=== PATIENT | female | born 2000 | race Caucasian/White ===

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

== ENCOUNTER → 2020-02-06 | Outpatient (CLI) | payer OTHER ==
[~2020-02-06] MED LIST changes: +TAMIFLU 75MG CA75 MG PO
== END | disposition home or self-care (01) ==
LOC: COVID19 11:47
PROVIDERS: ATTEND Family Medicine
DX: Z20.828 Contact with and (suspected) exposure to other viral communicable diseases (principal)

== ENCOUNTER 2022-01-02 14:31 | Emergency (ER) | payer OTHER ==
[~2022-01-02] VITALS: Ht 172.7 cm; Wt 154.2 kg
[2022-01-02 14:50] VITALS: BP 132/58
[2022-01-02 15:24] LABS: BASO # 0.1 10*3/uL (0.0-0.1); BASO % 1.2 % (0.0-1.0); EOS # 0.2 10*3/uL (0.0-0.4); EOS % 1.8 % (1.0-4.0); HEMATOCRIT 38.3 % (37.0-47.0); LYMPH % 29.4 % (27.0-41.0); MEAN CELL VOLUME 84.5 fl (81.0-99.0); MEAN CORPUSCULAR HGB 27.4 pg (27.0-31.0); MEAN CORPUSCULAR HGB CONC 32.4 g/dl (33.0-37.0); MEAN PLATELET VOLUME 11.7 fl (9.6-12.3); MONO # 0.7 10*3/uL (0.1-1.0); MONO % 7.2 % (3.0-9.0); NEUT # 6.2 10*3/uL (2.3-7.9); NEUT % 60.1 % (47.0-73.0); PLATELET COUNT AUTOMATED 299 10*3/uL (130-400); RED BLOOD COUNT 4.53 10*6/uL (4.10-5.10); WHITE BLOOD COUNT 10.3 10*3/uL (4.8-10.8)
[2022-01-02 15:35] LABS: BILIRUBIN Negative (Negative); BLOOD Negative (Negative); CLARITY Clear (Clear); COLOR Yellow (Yellow); GLUCOSE Negative (Negative); KETONE Negative (Negative); LEUKO ESTERASE Negative (Negative); NITRITE Negative (Negative); PH 6.5 (4.5-8.0)
[2022-01-02 15:46] LABS: ALKALINE PHOSPHATASE 75 U/L (45-117); BUN 9 mg/dl (7-24); CHLORIDE 108 mmol/L (98-107); CREATININE 0.91 mg/dL (0.55-1.02); LIPASE 214 U/L (73-393); POTASSIUM 3.8 mmol/L (3.5-5.1); SGOT/AST 98 IU/L (3-35); SGPT/ALT 215 U/L (12-78); SODIUM 139 mmol/L (136-145); TOTAL PROTEIN 7.6 gm/dL (6.4-8.2)
[2022-01-02 15:55] LABS: EPITHELIAL CELLS 0-2; RBC 0-2 rbc/hpf (0-2); WBC 0-2 wbc/hpf (0-5)
[2022-01-02 15:56] LABS: BACTERIA TRACE
[2022-01-02] MEDS ORDERED: DICYCLOMINE HCL10 MG PO (16:42)
[2022-01-02] MEDS ORDERED: ONDANSETRON4 MG SL (16:42)
[2022-01-02] MEDS ORDERED: CARAFATE1 G1 PO (16:42)
== END 2022-01-02 17:02 | disposition home or self-care (01) ==
LOC: ED 14:31
PROVIDERS: Physician Assistant
DX: R10.11 Right upper quadrant pain (principal)

== ENCOUNTER 2022-01-04 02:06 | Emergency (ER) | payer OTHER ==
[~2022-01-04] VITALS: Ht 170.1 cm; Wt 154.2 kg
[~2022-01-04 02:06] MED LIST changes: +CARAFATE1 G1 PO; +DICYCLOMINE HCL10 MG PO; +ONDANSETRON4 MG SL
[2022-01-04 05:32] VITALS: BP 114/57
== END 2022-01-04 05:54 | disposition home or self-care (01) ==
LOC: ED 02:06
DX: K82.9 Disease of gallbladder, unspecified (principal)

== ENCOUNTER → 2022-01-23 | Day surgery (SDC) | payer OTHER ==
[2022-01-21 13:41] VITALS: BP 136/76
[2022-01-23] VITALS (8 sets, daily range): BP systolic 124–150; BP diastolic 72–90
[~2022-01-23] VITALS: Ht 170.1 cm; Wt 145.1 kg
[~2022-01-23] MED LIST changes: +LEXAPRO20 MG PO; +NEXIUM20 M1 PO
== END | disposition home or self-care (01) ==
LOC: SDC 01-21 13:15
PROVIDERS: ATTEND Surgery
DX: K80.10 Calculus of gallbladder with chronic cholecystitis without obstruction (principal); K82.8 Other specified diseases of gallbladder; I10 Essential (primary) hypertension; G43.909 Migraine, unspecified, not intractable, without status migrainosus; F41.9 Anxiety disorder, unspecified; E66.01 Morbid (severe) obesity due to excess calories; F32.A Depression, unspecified; F90.9 Attention-deficit hyperactivity disorder, unspecified type; E28.2 Polycystic ovarian syndrome; Z68.43 Body mass index [BMI] 50.0-59.9, adult; Z79.899 Other long term (current) drug therapy

== ENCOUNTER → 2023-03-05 | Outpatient (CLI) | payer OTHER | END | disposition home or self-care (01) | LOC: US 07:45 | PROVIDERS: ATTEND Nurse Practitioner Women's Health | DX: N63.0 Unspecified lump in unspecified breast (principal) ==

== ENCOUNTER → 2023-07-09 | Outpatient (CLI) | payer OTHER ==
[2023-07-09 07:54] LABS: BASO # 0.1 10*3/uL (0.0-0.1); BASO % 0.6 % (0.0-1.0); EOS # 0.2 10*3/uL (0.0-0.4); EOS % 1.8 % (1.0-4.0); HEMATOCRIT 39.9 % (37.0-47.0); LYMPH # 4.5 10*3/uL (1.3-4.4); LYMPH % 39.6 % (27.0-41.0); MEAN CELL VOLUME 84.2 fl (81.0-99.0); MEAN CORPUSCULAR HGB 25.5 pg (27.0-31.0); MEAN CORPUSCULAR HGB CONC 30.3 g/dl (33.0-37.0); MONO # 0.6 10*3/uL (0.1-1.0); MONO % 5.6 % (3.0-9.0); NEUT # 5.9 10*3/uL (2.3-7.9); PLATELET COUNT AUTOMATED 299 10*3/uL (130-400); RED BLOOD COUNT 4.74 10*6/uL (4.10-5.10); RED CELL DISTRI WIDTH 13.4 % (0-14.5); WHITE BLOOD COUNT 11.4 10*3/uL (4.8-10.8)
[2023-07-09 08:28] LABS: ALKALINE PHOSPHATASE 67 U/L (46-116); BUN 10 mg/dl (9-23); CHLORIDE 106 mmol/L (98-107); CHOLESTEROL 151 mg/dL (<200); CPK 78 U/L (34-171); FREE T4 0.87 ng/dl (0.89-1.76); LDL CHOLESTEROL 72 mg/dL (9-159); POTASSIUM 4.1 mmol/L (3.4-5.1); SGPT/ALT 9 U/L (5-49); TOTAL PROTEIN 7.1 gm/dL (6.0-8.0); TRIGLYCERIDES 101 mg/dl (<150)
[2023-07-09 08:29] LABS: VITAMIN D, 25-HYDROXY 59.1 ng/mL (30-100)
== END | disposition home or self-care (01) ==
LOC: LAB 07:17
PROVIDERS: ATTEND Internal Medicine
DX: Z13.0 Encounter for screening for diseases of the blood and blood-forming organs and certain disorders involving the immune mechanism (principal); Z13.1 Encounter for screening for diabetes mellitus; Z13.21 Encounter for screening for nutritional disorder; Z13.220 Encounter for screening for lipoid disorders; Z13.228 Encounter for screening for other metabolic disorders; Z13.6 Encounter for screening for cardiovascular disorders; Z13.89 Encounter for screening for other disorder; Z13.9 Encounter for screening, unspecified; I10 Essential (primary) hypertension; E28.2 Polycystic ovarian syndrome; F41.1 Generalized anxiety disorder

== ENCOUNTER 2024-04-22 23:58 | Emergency (ER) | payer OTHER ==
[~2024-04-22] VITALS: Ht 170.1 cm; Wt 158.8 kg
[~2024-04-22 23:58] MED LIST changes: +CYPROHEPTADINE H4 M1 PO; +DROSPIRENONE-E1 EACH PO; +FAMOTIDINE20 M1 PO; +METOPROLOL TART50 M1 PO; +MONTELUKAST SOD10 MG PO; +PREDNISONE20 M1 PO; +ZITHROMAX250 MG PO
[2024-04-23 00:11] VITALS: BP 132/78
[2024-04-23] MEDS ORDERED: Albuterol Sulf/Ipratropium 3 ML VIAL NEB ONE (00:30)
[2024-04-23] MEDS ORDERED: TAMIFLU 75MG CA75 MG PO (01:12)
== END 2024-04-23 01:19 | disposition home or self-care (01) ==
LOC: ED 23:58
DX: J10.1 Influenza due to other identified influenza virus with other respiratory manifestations (principal); Z20.822 Contact with and (suspected) exposure to COVID-19; Z79.899 Other long term (current) drug therapy; Z96.22 Myringotomy tube(s) status